=== PATIENT | male | born 1955 ===

== ENCOUNTER 2020-06-25 09:30 | Outpatient (CLI) | payer MEDICARE | END 2020-06-25 09:31 | disposition home or self-care (01) | LOC: EMS 09:30 | PROVIDERS: ATTEND Surgery | DX: R46.89 Other symptoms and signs involving appearance and behavior (principal); R53.1 Weakness ==

== ENCOUNTER → 2020-06-26 | Outpatient (CLI) | payer MEDICARE | END | disposition short-term general hospital (02) | LOC: EMS 17:48 | PROVIDERS: ATTEND Surgery | DX: R53.1 Weakness (principal); R41.0 Disorientation, unspecified; Z91.81 History of falling | CPT/HCPCS: A0425; A0427; A0888 ==

== ENCOUNTER 2020-07-12 08:31 | Outpatient (CLI) | payer MEDICARE | END 2020-07-12 08:32 | disposition EMS.NT | LOC: EMS 08:31 | PROVIDERS: ATTEND Surgery | DX: Z03.89 Encounter for observation for other suspected diseases and conditions ruled out (principal) ==